=== PATIENT | female | born 1995 | race Caucasian/White ===

== ENCOUNTER 2017-10-17 14:49 | Emergency (ER) | payer BC, OTHER ==
[2017-10-17] MEDS ORDERED: Ibuprofen 600 MG Tab PO ONE (15:45)
--- NOTE | 2017-10-17 15:56 | EDM.PDOC ---
ED HPI GENERAL MEDICAL PROBLEM - General Chief Complaint: Lower Extremity Injury/Pain Stated Complaint: L LEG PAIN/NUMBNESS Time Seen by Provider: 10/17/17 15:26 Source of Information: Reports: Patient History Limitations: Reports: No Limitations - History of Present Illness INITIAL COMMENTS - FREE TEXT/NARRATIVE: 22-year-old female presents for evaluation and treatment of pelvic pain and left leg pain. Patient reports about 5 days ago she developed cramping and pelvic pressure on her left side. She reports associated symptoms of nausea, fatigue, heartburn or acid reflux. She reports that the pelvic pain was present this morning but has now mostly resolved. She now has pain into her left leg. Describes a shooting sharp stabbing pain. She states that sometimes it watkins. She reports him some tingling into the leg and feeling that her leg is cold. She is a history of ovarian cysts and felt that this was initially what caused her problems. She contacted her [employer]PER[employer] and surgery to come to the ED. She reports associated symptoms of lightheadedness. No syncope. No chest pain, shortness of breath or hemoptysis. Patient reports she has been on contraceptives on and off for the last few years. She is a . She's been off contraceptives since September 07. She had a menstrual cycle September 12 to . She then has menstrual cycle October 03 to Oct 08. She took an at-home test 2 years ago which was negative. She reports her most recent menstrual cycle started heavier than normal but was very similar to her previous menstrual cycles. Last intake around noon today. Patient denies any back pain. States she has had sciatica in the past and this does not feel similar. 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 Psychiatric History: Reports: Bipolar, Depression Hematologic History: Reports: Anemia - Past Surgical History HEENT Surgical History: Reports: Oral Surgery Social & Family History - Family History Family Medical History: Noncontributory Review of Systems - Review of Systems Review Of Systems: See Below Respiratory: Denies: Shortness of Breath, Hemoptysis Cardiovascular: Reports: Lightheadedness. Denies: Chest Pain GI/Abdominal: Reports: Nausea Genitourinary: Reports: Other (pelvic pain and pressure, left sided). Denies: Dysuria Musculoskeletal: Reports: Leg Pain (left), Other (no leg swelling). Denies: Back Pain Neurological: Reports: Numbness (left leg), Tingling (left leg). Denies: Syncope ED EXAM, GENERAL - Physical Exam Exam: See Below Exam Limited By: No Limitations General Appearance: Alert, WD/WN, No Apparent Distress Respiratory/Chest: No Respiratory Distress, Lungs Clear, Normal Breath Sounds Cardiovascular: Normal Peripheral Pulses, Regular Rate, Rhythm, No Murmur GI/Abdominal: Normal Bowel Sounds, Soft, Non-Tender, No Distention Extremities: Normal Inspection Neurological: Alert, Oriented, Normal Cognition Psychiatric: Normal Affect, Normal Mood Skin Exam: Warm, Dry, Normal Color Course - Vital Signs Last Recorded V/S: Last Vital Signs Temp 98.6 F 10/17/17 15:00 Pulse 87 10/17/17 18:05 Resp 16 10/17/17 18:05 BP 120/77 10/17/17 18:05 Pulse Ox 99 10/17/17 18:05 - Orders/Labs/Meds Orders: Active Orders 24 hr Category Date Time Status CULTURE URINE [RM] Stat Lab 10/17/17 16:24 Received UA W/MICROSCOPIC [URIN] Stat Lab 10/17/17 16:24 Ordered Labs: Laboratory Tests 10/17/17 10/17/17 10/17/17 Range/Units 15:58 15:58 15:58 WBC 12.02 H (3.98-10.04) K/mm3 RBC 4.15 (3.98-5.22) M/mm3 Hgb 12.7 (11.2-15.7) gm/L Hct 37.6 (34.1-44.9) % MCV 90.6 (79.4-94.8) fl MCH 30.6 (25.6-32.2) pg MCHC 33.8 (32.2-35.5) g/dl RDW Std Deviation 40.9 (36.4-46.3) fL Plt Count 374 H (182-369) K/mm3 MPV 9.3 L (9.4-12.3) fl Neutrophils % (Manual) 74 H (40-60) % Band Neutrophils % 1 (0-10) % Lymphocytes % (Manual) 21 (20-40) % Atypical Lymphs % 0 % Monocytes % (Manual) 4 (2-10) % Eosinophils % (Manual) 0 L (0.7-5.8) % Basophils % (Manual) 0 L (0.1-1.2) Toxic Granulation 2+ moderate Platelet Estimate Adequate Plt Morphology Comment Normal RBC Morph Comment Normal D-Dimer, Quantitative < 0.19 L (0.19-0.50) mg/L HCG, Quant < 1.0 mIU/mL Urine Color (Yellow) Urine Appearance (Clear) Urine pH (5.0-8.0) Ur Specific [place] (1.005-1.030) Urine Protein (Negative) Urine Glucose (UA) (Negative) Urine Ketones (Negative) Urine Occult Blood (Negative) Urine Nitrite (Negative) Urine Bilirubin (Negative) Urine Urobilinogen (0.2-1.0) Ur Leukocyte Esterase (Negative) Urine RBC (0-5) /hpf Urine WBC (0-5) /hpf Ur Epithelial Cells (0-5) /hpf Urine Bacteria (FEW) /hpf Urine Mucus (FEW) /hpf // Range/Units 16:24 WBC (3.98-10.04) K/mm3 RBC (3.98-5.22) M/mm3 Hgb (11.2-15.7) gm/L Hct (34.1-44.9) % MCV (79.4-94.8) fl MCH (25.6-32.2) pg MCHC (32.2-35.5) g/dl RDW Std Deviation (36.4-46.3) fL Plt Count (182-369) K/mm3 MPV (9.4-12.3) fl Neutrophils % (Manual) (40-60) % Band Neutrophils % (0-10) % Lymphocytes % (Manual) (20-40) % Atypical Lymphs % % Monocytes % (Manual) (2-10) % Eosinophils % (Manual) (0.7-5.8) % Basophils % (Manual) (0.1-1.2) Toxic Granulation Platelet Estimate Plt Morphology Comment RBC Morph Comment D-Dimer, Quantitative (0.19-0.50) mg/L HCG, Quant mIU/mL Urine Color Yellow (Yellow) Urine Appearance Slt cloudy H (Clear) Urine pH 6.0 (5.0-8.0) Ur Specific [place] 1.015 (1.005-1.030) Urine Protein Negative (Negative) Urine Glucose (UA) Negative (Negative) Urine Ketones Negative (Negative) Urine Occult Blood 3+ H (Negative) Urine Nitrite Negative (Negative) Urine Bilirubin Negative (Negative) Urine Urobilinogen 0.2 (0.2-1.0) Ur Leukocyte Esterase 2+ H (Negative) Urine RBC 5-10 H (0-5) /hpf Urine WBC 10-20 H (0-5) /hpf Ur Epithelial Cells 10-20 H (0-5) /hpf Urine Bacteria Many H (FEW) /hpf Urine Mucus Many H (FEW) /hpf Meds: Medications Discontinued Medications Generic Name Dose Route Start Last Admin Trade Name Freq PRN Reason Stop Dose Admin Ibuprofen 600 mg 10/17/17 15:45 10/17/17 16:44 Motrin PO 10/17/17 15:46 600 mg ONETIME ONE Administration - Radiology Interpretation Free Text/Narrative:: Pelvic ultrasound: Multiple real-time images were obtained transvaginally. Comparison: No previous study. Uterus is anteverted. Portions of the uterine fundus are obscured from bowel gas. No discrete myometrial abnormality is identified. Incidental nabothian cyst is present. Endometrial thickness is 1 cm. Ovaries appear unremarkable with follicles. Measurements: Uterus: Length 7.7 cm, AP height 3.4 cm, transverse width 4.5 cm Right ovary: 4.2 x 4.2 x 1.8 cm Left ovary: 4.0 x 3.1 x 1.9 cm Impression: 1. Portions of the uterine fundus not well seen because of bowel gas. 2. Pelvic ultrasound is otherwise unremarkable. - Re-Assessments/Exams Free Text/Narrative Re-Assessment/Exam: 10/17/17 18:00 Review the labs and imaging with the patient. She reports the ibuprofen has significantly helped with the leg pain. She does not feel she needs anything stronger. She is not having any back pain. Question of this is something like endometriosis causing her pelvic discomfort. We'll start her on antibiotic for UTI. discharge instructions as documented. Departure - Departure Time of Disposition: 18:00 Disposition: Home, Self-Care 01 Condition: Fair Clinical Impression: UTI, Urinary tract infectious disease - Discharge Information *PRESCRIPTION DRUG MONITORING PROGRAM REVIEWED*: No *COPY OF PRESCRIPTION DRUG MONITORING REPORT IN PATIENT LOY: No Prescriptions: Nitrofurantoin Monohyd/M-Cryst [Macrobid 100 mg Capsule] 100 mg PO BID #10 capsule Instructions: Urinary Tract Infection, Adult Referrals: PCP,None [Primary Care Provider] - Forms: ED Department Discharge Additional Instructions: Follow-up with OB this week or early next week for recheck of your symptoms. Recommend Dr. Montgomery or Dr. Salamanca at the [facility]. Call [phone] to schedule with one of them. Make sure you are drinking plenty of fluids. [id number] Tylenol or Motrin as needed for pain. May also try ice or heat for additional pain relief. Macrobid 1 Twice a day for 5 days. Please return to the ER if your symptoms change or worsen. - My Orders Last 24 Hours: My Active Orders 10/17/17 16:24 CULTURE URINE [RM] Stat UA W/MICROSCOPIC [URIN] Stat - Assessment/Plan Last 24 Hours: My Active Orders 10/17/17 16:24 CULTURE URINE [RM] Stat UA W/MICROSCOPIC [URIN] Stat
[2017-10-17 18:11] VITALS: BP 120/77
--- NOTE | 2017-10-18 07:41 | US ---
Pelvic ultrasound: Multiple real-time images were obtained transvaginally. Comparison: No previous study. Uterus is anteverted. Portions of the uterine fundus are obscured from bowel gas. No discrete myometrial abnormality is identified. Incidental nabothian cyst is present. Endometrial thickness is 1 cm. Ovaries appear unremarkable with follicles. Measurements: Uterus: Length 7.7 cm, AP height 3.4 cm, transverse width 4.5 cm Right ovary: 4.2 x 4.2 x 1.8 cm Left ovary: 4.0 x 3.1 x 1.9 cm Impression: 1. Portions of the uterine fundus not well seen because of bowel gas. 2. Pelvic ultrasound is otherwise unremarkable. Diagnostic code #2
== END 2017-10-17 18:09 | disposition home or self-care (01) ==
LOC: JD.ED 14:49
DX: N39.0 Urinary tract infection, site not specified (principal); Z79.899 Other long term (current) drug therapy; Z88.5 Allergy status to narcotic agent; Z91.040 Latex allergy status; Z91.09 Other allergy status, other than to drugs and biological substances
CPT/HCPCS: 36415; 76830; 81001; 84702; 85007; 85027; 85379; 87086; 99284; A9270; 99283

== ENCOUNTER 2022-07-24 15:57 | Observation (INO) | payer BC ==
[2022-07-24] MEDS ORDERED: HYDROmorphone 0.5 MG/0.5 ML Syringe IVPUSH ONE ×3 (16:12→18:51)
[2022-07-24] MEDS ORDERED: Ondansetron 4 MG/2 ML SDV IVPUSH ONE (16:12)
[2022-07-24] MEDS ORDERED: Sodium Chloride 0.9% 10 ML Syringe FLUSH PRN (16:12)
[2022-07-24 16:20] LABS: BASOPHILS ABSOLUTE AUTO 0.01 K/mm3 (0.01-0.08); BASOPHILS PERCENT AUTO 0.1 % (0.1-1.2); EOSINOPHILS ABSOLUTE AUTO 0.01 K/mm3 (0.04-0.36); EOSINOPHILS PERCENT AUTO 0.1 (0.7-5.8); HEMATOCRIT 36.7 % (34.1-44.9); HEMOGLOBIN 12.7 gm/dl (11.2-15.7); IMMATURE GRAN ABSOLUTE AUTO 0.03 K/mm3 (0.00-0.10); IMMATURE GRAN PERCENT AUTO 0.2 % (<=1.0); LYMPHOCYTES PERCENT AUTO 14.2 % (19.3-51.7); MEAN CORPUSCULAR HEMOGLOBIN 30.5 pg (25.6-32.2); MEAN CORPUSCULAR HGB CONC 34.6 g/dl (32.2-35.5); MEAN CORPUSCULAR VOLUME 88.2 fl (79.4-94.8); MEAN PLATELET VOLUME 9.3 fl (9.4-12.3); MONOCYTES PERCENT AUTO 3.5 % (4.7-12.5); NEUTROPHILS ABSOLUTE AUTO 11.54 K/mm3 (1.56-6.13); NEUTROPHILS PERCENT AUTO 81.9 % (34.0-71.1); PLATELET COUNT,PLT 407 K/mm3 (182-369); RED BLOOD CELL COUNT 4.16 M/mm3 (3.98-5.22); WHITE BLOOD CELL COUNT,WBC 14.09 K/mm3 (3.98-10.04)
[2022-07-24 16:36] LABS: A/G RATIO 0.7 (1-2); ALBUMIN 3.3 g/dl (3.4-5.0); ANION GAP 17.8 (5-15); BILIRUBIN TOTAL 0.4 mg/dL (0.2-1.0); BUN/CREATININE RATIO 13.3 (14-18); C-REACTIVE PROTEIN 3.4 mg/dL (<1.0); CALCIUM 9.5 mg/dL (8.5-10.1); CREATININE 0.6 mg/dL (0.55-1.02); EST CRCL DRUG DOSING (CG) 126.73 mL/min; POTASSIUM,K 3.8 mEq/L (3.5-5.1)
[2022-07-24] MEDS ORDERED: Sodium Chloride 0.9% 1,000 ML IV ONE ×2 (17:53→21:19)
[2022-07-24 18:58] LABS: APPEARANCE,URINE SLT CLOUDY (Clear); BILIRUBIN,URINE NEGATIVE (Negative); COLOR,URINE YELLOW (Yellow); GLUCOSE,URINE NEGATIVE (Negative); KETONES,URINE 4+ (Negative); LEUKOCYTE ESTERASE,URINE NEGATIVE (Negative); NITRITE,URINE NEGATIVE (Negative); OCCULT BLOOD,URINE 3+ (Negative); PROTEIN,URINE 2+ (Negative); UROBILINOGEN,URINE 0.2 (0.2-1.0)
[2022-07-24 19:06] LABS: BACTERIA,URINE MODERATE /hpf (FEW); MUCUS,URINE MANY /hpf (FEW); RBC,URINE 50-75 /hpf (0-5); WBC,URINE 0-5 /hpf (0-5)
[2022-07-24] MEDS ORDERED: fentaNYL 100 MCG/2 ML SDV IVPUSH ONE (21:35)
[2022-07-24] MEDS ORDERED: Iopamidol 612 MG/ML 100 ML Bottle IVPUSH ONE (21:43)
[2022-07-25] MEDS ORDERED: fentaNYL 100 MCG/2 ML SDV IVPUSH PRN (00:22)
[2022-07-25] MEDS ORDERED: Ondansetron 4 MG in Sodium Chloride 0.9% 50 ML IV PRN (00:22)
[2022-07-25] MEDS ORDERED: Acetaminophen 325 MG Tab PO PRN (00:28)
[2022-07-25] MEDS: Ondansetron 4 MG/2 ML SDV IVPUSH PRN (00:42)
[2022-07-25] MEDS: HYDROmorphone 0.5 MG/0.5 ML Syringe IVPUSH PRN ×3 (01:50→19:36)
[2022-07-25 05:59] LABS: ANION GAP 15.6 (5-15); BASOPHILS ABSOLUTE AUTO 0.01 K/mm3 (0.01-0.08); BASOPHILS PERCENT AUTO 0.1 % (0.1-1.2); C-REACTIVE PROTEIN 2.7 mg/dL (<1.0); CALCIUM 8.3 mg/dL (8.5-10.1); CREATININE 0.4 mg/dL (0.55-1.02); EOSINOPHILS PERCENT AUTO 0 (0.7-5.8); EST CRCL DRUG DOSING (CG) 190.1 mL/min; HEMATOCRIT 32.3 % (34.1-44.9); IMMATURE GRAN ABSOLUTE AUTO 0.03 K/mm3 (0.00-0.10); IMMATURE GRAN PERCENT AUTO 0.3 % (<=1.0); LYMPHOCYTES ABSOLUTE AUTO 1.38 K/mm3 (1.18-3.74); MEAN CORPUSCULAR HGB CONC 33.4 g/dl (32.2-35.5); MEAN CORPUSCULAR VOLUME 89.7 fl (79.4-94.8); MEAN PLATELET VOLUME 9.4 fl (9.4-12.3); MONOCYTES ABSOLUTE AUTO 0.53 K/mm3 (0.24-0.36); MONOCYTES PERCENT AUTO 4.6 % (4.7-12.5); NEUTROPHILS ABSOLUTE AUTO 9.55 K/mm3 (1.56-6.13); POTASSIUM,K 3.6 mEq/L (3.5-5.1)
[2022-07-25 06:06] LABS: HEMOGLOBIN 10.8 gm/dl (11.2-15.7); PLATELET COUNT,PLT 314 K/mm3 (182-369)
[2022-07-25] MEDS: Sodium Chloride 0.9% 1,000 ML IV SCH ×2 (08:16→18:20)
[2022-07-25] MEDS ORDERED: Cephalexin 500 MG Cap PO ONE (10:58)
[2022-07-25] MEDS: Ondansetron 4 MG Tab.DIS PO PRN ×2 (11:09→19:16)
[2022-07-25] MEDS: Acetaminophen/oxyCODONE 325-5 MG Tab PO PRN ×2 (11:44→22:56)
[2022-07-25] MEDS ORDERED: cefTRIAXone 1 GM in Sodium Chloride 0.9% 100 ML IV ONE (16:17)
[2022-07-26] MEDS: HYDROmorphone 0.5 MG/0.5 ML Syringe IVPUSH PRN (04:13)
[2022-07-26] MEDS: Sodium Chloride 0.9% 1,000 ML IV SCH (04:13)
[2022-07-26 07:14] LABS: BASOPHILS ABSOLUTE AUTO 0.01 K/mm3 (0.01-0.08); BASOPHILS PERCENT AUTO 0.1 % (0.1-1.2); EOSINOPHILS ABSOLUTE AUTO 0.02 K/mm3 (0.04-0.36); EOSINOPHILS PERCENT AUTO 0.2 (0.7-5.8); HEMATOCRIT 30.1 % (34.1-44.9); HEMOGLOBIN 10.2 gm/dl (11.2-15.7); IMMATURE GRAN ABSOLUTE AUTO 0.01 K/mm3 (0.00-0.10); IMMATURE GRAN PERCENT AUTO 0.1 % (<=1.0); LYMPHOCYTES ABSOLUTE AUTO 1.58 K/mm3 (1.18-3.74); MEAN CORPUSCULAR HEMOGLOBIN 30.6 pg (25.6-32.2); MEAN CORPUSCULAR HGB CONC 33.9 g/dl (32.2-35.5); MEAN CORPUSCULAR VOLUME 90.4 fl (79.4-94.8); MEAN PLATELET VOLUME 9.3 fl (9.4-12.3); MONOCYTES ABSOLUTE AUTO 0.56 K/mm3 (0.24-0.36); MONOCYTES PERCENT AUTO 5.7 % (4.7-12.5); NEUTROPHILS ABSOLUTE AUTO 7.68 K/mm3 (1.56-6.13); NEUTROPHILS PERCENT AUTO 77.9 % (34.0-71.1); PLATELET COUNT,PLT 294 K/mm3 (182-369); RED BLOOD CELL COUNT 3.33 M/mm3 (3.98-5.22); WHITE BLOOD CELL COUNT,WBC 9.86 K/mm3 (3.98-10.04)
[2022-07-26] MEDS ORDERED: cefTRIAXone 1 GM in Sodium Chloride 0.9% 100 ML IV SCH ×2 (08:00→16:00)
[2022-07-26] MEDS: Ondansetron 4 MG/2 ML SDV IVPUSH PRN (08:34)
[2022-07-26 09:25] VITALS: BP 113/68; PULSE 90
== END 2022-07-26 14:30 | disposition home or self-care (01) ==
LOC: JD.ED 15:57 → JD.OB 22:57
PROVIDERS: ADMIT Obstetrics & Gynecology; ATTEND Obstetrics & Gynecology
DX: O26.891 Other specified pregnancy related conditions, first trimester (principal); R10.9 Unspecified abdominal pain; O34.81 Maternal care for other abnormalities of pelvic organs, first trimester; N83.201 Unspecified ovarian cyst, right side; O99.011 Anemia complicating pregnancy, first trimester; D64.9 Anemia, unspecified; O99.341 Other mental disorders complicating pregnancy, first trimester; F32.A Depression, unspecified; O99.321 Drug use complicating pregnancy, first trimester; F12.90 Cannabis use, unspecified, uncomplicated; Z91.048 Other nonmedicinal substance allergy status; Z88.5 Allergy status to narcotic agent; Z91.040 Latex allergy status; Z79.899 Other long term (current) drug therapy; Z3A.12 12 weeks gestation of pregnancy
CPT/HCPCS: 36415; 74177; 76705; 76770; 80048; 80053; 81001; 85025; 86140; 87086; 96361; 96365; 96375; 96376; 99285; A9270; G0378; J0696; J1170; J2405; J3010; J3490; J7030; Q9967; 96374; 99284

== ENCOUNTER 2025-01-11 07:14 | Inpatient (IN) | payer MEDICAID ==
[2025-01-11] MEDS ORDERED: Nalbuphine 10 MG/1 ML Vial IVPUSH PRN (07:29)
[2025-01-11] MEDS ORDERED: Sodium Chloride 0.9% 10 ML Syringe FLUSH PRN (07:29)
[2025-01-11] MEDS ORDERED: Ondansetron 4 MG/2 ML SDV IVPUSH PRN (07:29)
[2025-01-11] MEDS ORDERED: Oxytocin/0.9 % Sodium Chloride 30 UNIT/500 ML BAG IV SCH (07:30)
[2025-01-11 08:01] LABS: BASOPHILS ABSOLUTE AUTO 0.0 K/mm3 (0.0-0.2); BASOPHILS PERCENT AUTO 0.1 % (0.0-1.0); EOSINOPHILS ABSOLUTE AUTO 0.1 K/mm3 (0.0-0.4); EOSINOPHILS PERCENT AUTO 0.6 % (0.0-6.0); IMMATURE GRAN ABSOLUTE AUTO 0.05 K/mm3 (0.00-0.05); IMMATURE GRAN PERCENT AUTO 0.5 % (0.0-0.4); LYMPHOCYTES ABSOLUTE AUTO 1.5 K/mm3 (1.0-4.8); LYMPHOCYTES PERCENT AUTO 16.1 % (24.0-44.0); MEAN PLATELET VOLUME 10.3 fl (9.4-12.3); MONOCYTES ABSOLUTE AUTO 0.5 K/mm3 (0.0-0.8); MONOCYTES PERCENT AUTO 5.7 % (0.0-8.0); NEUTROPHILS ABSOLUTE AUTO 7.2 K/mm3 (1.8-7.7); NEUTROPHILS PERCENT AUTO 77.0 % (41.0-71.0); NRBC ABSOLUTE 0.00 (0.00-0.02); NRBC PERCENT 0.0 % (0.0-0.2); PLATELET COUNT,PLT 218 K/mm3 (150-400); RED BLOOD CELL COUNT 3.48 M/mm3 (4.10-5.30); WHITE BLOOD CELL COUNT,WBC 9.33 K/mm3 (3.9-11.3)
[2025-01-11] MEDS: Lactated Ringers 1,000 ML IV SCH (08:12)
[2025-01-11] MEDS: Oxytocin/0.9 % Sodium Chloride 30 UNIT/500 ML BAG IV SCH (08:12)
[2025-01-11] MEDS ORDERED: Sodium Chloride 0.9% 10 ML Syringe FLUSH SCH (09:00)
[2025-01-11] MEDS ORDERED: ePHEDrine 50 MG/ML SDV IVPUSH PRN (11:07)
[2025-01-11] MEDS ORDERED: diphenhydrAMINE 50 MG/ML SDV IVPUSH PRN (11:07)
[2025-01-11] MEDS ORDERED: fentaNYL 100 MCG/2 ML SDV EPIDUR PRN (11:07)
[2025-01-11] MEDS: Bupivacaine/fentaNYL/NS 100 ML Bag EPIDUR PRN (11:10)
[2025-01-11] MEDS: Benzocaine/Menthol 20%-0.5% Spray 78 GM Cannister TOP PRN (15:56)
[2025-01-11] MEDS: Witch Hazel Medicated Pads 40/Jar TOP PRN (15:56)
[2025-01-12 15:29] VITALS: BP 135/73; PULSE 92
== END 2025-01-12 15:05 | disposition home or self-care (01) | DRG 807 ==
LOC: JD.OBCHECK 07:14 → JD.OB 07:21 → JD.OBCHECK 07:39 → JD.OB 07:40
PROVIDERS: ADMIT Family Medicine; ATTEND Family Medicine
PROC: 10E0XZZ Delivery of Products of Conception, External Approach (ICD-10-PCS; principal; 2025-01-11)
PROC: 3E0R3BZ Introduction of Anesthetic Agent into Spinal Canal, Percutaneous Approach (ICD-10-PCS; principal; 2025-01-11)
PROC: 10907ZC Drainage of Amniotic Fluid, Therapeutic from Products of Conception, Via Natural or Artificial Opening (ICD-10-PCS; principal; 2025-01-11)
PROC: 3E033VJ Introduction of Other Hormone into Peripheral Vein, Percutaneous Approach (ICD-10-PCS; principal; 2025-01-11)
DX: O48.0 Post-term pregnancy (principal); Z37.0 Single live birth; O99.02 Anemia complicating childbirth; Z3A.40 40 weeks gestation of pregnancy; O69.1XX0 Labor and delivery complicated by cord around neck, with compression, not applicable or unspecified; Z88.8 Allergy status to other drugs, medicaments and biological substances; Z91.040 Latex allergy status; Z98.890 Other specified postprocedural states; Z79.899 Other long term (current) drug therapy
CPT/HCPCS: 36415; 51702; 59025; 59409; 85025; 86592; 86850; 86900; 86901; A9270-GY; J3490; J7120; J7999